=== PATIENT | female | born 1990 | race African-American/Black ===

== ENCOUNTER 2023-09-05 18:47 | Emergency (ER) | payer BC ==
[~2023-09-05] VITALS: Ht 167.6 cm; Wt 117.9 kg
[2023-09-05 20:50] VITALS: BP 127/91; TEMP 98.1; O2SAT 98
[2023-09-05] MEDS ORDERED: dexaMETHasone SOD PHOSPHATE 10 MG/ML VIAL IV ONE (23:30)
== END 2023-09-05 23:42 | disposition left against medical advice (07) ==
LOC: ER 18:47
DX: J02.9 Acute pharyngitis, unspecified (principal); R50.9 Fever, unspecified; Z90.89 Acquired absence of other organs; Z60.2 Problems related to living alone
CPT/HCPCS: 86403-TC

== ENCOUNTER 2024-12-13 20:18 | Emergency (ER) | payer BC ==
[~2024-12-13] VITALS: Ht 167.6 cm; Wt 108.4 kg
[2024-12-13 22:12] LABS: BASOPHILS % (AUTO) 0.7 % (0.0-2.0); EOSINOPHILS % (AUTO) 1.1 % (0.0-6.0); HEMATOCRIT 39 % (33-45); LYMPHOCYTES # (AUTO) 1.5 K/uL (0.8-4.8); LYMPHOCYTES % (AUTO) 36.6 % (20.0-44.0); MEAN CORPUSCULAR HEMOGLOBIN 28 PG (26.0-33.0); MEAN CORPUSCULAR HGB CONC 33 g/dl (31.0-36.0); MEAN CORPUSCULAR VOLUME 85 fL (82-100); MONOCYTES # (AUTO) 0.6 K/uL (0.1-1.30); MONOCYTES % (AUTO) 13.9 % (2.0-12.0); NEUTROPHILS % (AUTO) 47.7 % (43.0-81.0); PLATELET COUNT (AUTO) 366 K/uL (150-450); WHITE BLOOD COUNT (AUTO) 4.2 K/uL (4.3-11.0)
[2024-12-13 22:21] LABS: CALCIUM, SERUM 9.5 mg/dL (8.5-10.1); CARBON DIOXIDE 27 mmol/L (21-32); CHLORIDE 105 mmol/L (98-107); CREATININE 0.9 mg/dL (0.6-1.3); GLUCOSE 98 mg/dL (74-106); POTASSIUM 4.2 mmol/L (3.5-5.1); SODIUM SERUM 138 mmol/L (136-145); UREA NITROGEN, BLOOD 12 mg/dL (7-18)
[2024-12-13] MEDS ORDERED: KETOROLAC TROMETHAMINE INJ 30 MG/ML VIAL ONE (22:38)
[2024-12-13] MEDS: KETOROLAC TROMETHAMINE INJ 30 MG/ML VIAL IV ONE (23:17)
[2024-12-13 23:35] VITALS: BP 134/82; TEMP 97.9; O2SAT 98
== END 2024-12-13 23:36 | disposition home or self-care (01) ==
LOC: ER 20:27
DX: R07.9 Chest pain, unspecified (principal); R10.2 Pelvic and perineal pain; Z60.2 Problems related to living alone
CPT/HCPCS: 99285; 71045; 93005; 85025; 80048; 36415; 84484; 84702; J1885